=== PATIENT | female | born 1935 | race Caucasian/White ===

== ENCOUNTER → 2016-11-05 | Outpatient (CLI) | payer MEDICARE, OTHER ==
[~2016-11-05] MED LIST: CALTRATE 600 +1 EAC1 PO; CHLORTHALIDONE25 MG PO; COZAAR50 MG PO; FLONASE16 GM NASBOTH; LINZESS145 MCG PO; LOPRESSOR25 MG PO; LOVAZA1 GM PO; LUTEIN6 M1 PO; MULTIPLE VITAM1 EACH PO; PREVACID30 MG PO; PROBIOTIC1 EAC1 PO; SYNTHROID50 MCG PO; TYLENOL325 MG PO
== END | disposition short-term general hospital (02) ==
LOC: CLORTH 08:11
DX: Z01.818 Encounter for other preprocedural examination (principal); M16.12 Unilateral primary osteoarthritis, left hip

== ENCOUNTER → 2016-12-03 | Outpatient (CLI) | payer MEDICARE, OTHER | END | disposition short-term general hospital (02) | LOC: CLORTH 09:33 | DX: Z47.1 Aftercare following joint replacement surgery (principal); Z96.642 Presence of left artificial hip joint ==

== ENCOUNTER → 2016-12-31 | Outpatient (CLI) | payer MEDICARE, OTHER | END | disposition short-term general hospital (02) | LOC: CLORTH 09:32 | DX: Z47.1 Aftercare following joint replacement surgery (principal); Z96.642 Presence of left artificial hip joint ==

== ENCOUNTER → 2017-01-08 | Outpatient (CLI) | payer MEDICARE, OTHER | END | disposition short-term general hospital (02) | LOC: CLCARD 08:22 | DX: R07.9 Chest pain, unspecified (principal); I10 Essential (primary) hypertension; E78.5 Hyperlipidemia, unspecified; E03.9 Hypothyroidism, unspecified; Z95.0 Presence of cardiac pacemaker; Z86.79 Personal history of other diseases of the circulatory system ==

== ENCOUNTER → 2017-02-25 | Outpatient (CLI) | payer MEDICARE, OTHER | END | disposition short-term general hospital (02) | LOC: CLORTH 07:38 | DX: Z47.1 Aftercare following joint replacement surgery (principal); M21.70 Unequal limb length (acquired), unspecified site; M16.11 Unilateral primary osteoarthritis, right hip; M47.898 Other spondylosis, sacral and sacrococcygeal region; Z96.642 Presence of left artificial hip joint ==